=== PATIENT | female | born 1975 | race Caucasian/White ===

== ENCOUNTER 2022-01-31 06:56 | Emergency (ER) | payer MEDICARE, SELFPAY ==
[2022-01-31 06:59] VITALS: BP 110/86; PULSE 95; RESP 20; TEMP 36.4; O2SAT 100; BMI 32.5
--- NOTE | 2022-01-31 07:26 | EKG12_ITS ---
Test Reason : CP Blood Pressure : / mmHG Vent. Rate : 097 BPM Atrial Rate : 097 BPM P-R Int : 116 ms QRS Dur : 080 ms QT Int : 356 ms P-R-T Axes : 057 069 050 degrees QTc Int : 452 ms Normal sinus rhythm Normal ECG Confirmed by KENNETH MACARIO, MARIO ([id number]), videotape editor SILVESTRE CRUZ ([id number]) on 02/01/2022 1:29:17 PM Referred By: BAYLEE Confirmed By:MARIO COOPER MD
--- NOTE | 2022-01-31 07:29 | EX.ED.DYSGE1 ---
HPI History of Present Illness Chief Complaint: General Illness Informant: patient Onset/Context/Timing Onset: Yesterday Context: Gradual Onset Timing: Continuous Quality: malaise/fatigue Location: all over Current Severity: Severe Maximum Severity: Severe Worsened by: nothing Relieved by: nothing Narrative Narrative: Patient presents stating since yesterday she has not felt well. She had chills all night, she states there is white stuff on her tongue that is not thrush because she knows what thrush is, this caused her to drool all night but no dyspnea. Some mild coughing nonproductive. Screven like she had fevers but did not check her temperature. She states her heart and lungs are hurting, the lungs are tight and feel like I am breathing glass and I know my pain is heart pain because it hurts on the left side of my chest although the patient admits that she has no history of any heart problems in the past. She also states that she is paranoid about a lot of things now since someone tampered with her eyedrops and was putting glue in it. When asked how she knew that she states trust me, you know when you are putting glue in your eyes and I was doing it for a year. She states she is no longer using those eyedrops. She has no eye complaints today. She is vaccinated against COVID and has been around no one that she knows of with it, no travel out of the area recently, no swelling in her legs. History of rheumatoid arthritis, no lung or heart issues. [facility] Medical History Pneumonia Rheumatoid arthritis Home Medications albuterol sulfate [Ventolin HFA] 1 - 2 puff INHALATION Q4H PRN PRN #1 inhaler 01/31/22 [Rx Last Taken Unknown] cyclobenzaprine [Flexeril] 30 mg PO QHS 01/31/22 [History Last Taken Unknown] methotrexate mg 01/31/22 [History Last Taken Unknown] Allergy/AdvReac Type Severity Reaction Status Date / Time Sulfa (Sulfonamide Allergy Anaphylaxis Verified 01/31/22 07:02 Antibiotics) Penicillins AdvReac Other Verified 01/31/22 07:02 povidone AdvReac Other Verified 01/31/22 07:02 Surgical History History of tubal ligation Social History Smoking Status: Current every day smoker tobacco type: cigarettes ROS ROS ED Constitutional Constitutional ED: Reports body ache(s), chills, fatigue, fever(s) and malaise Eyes Eyes: Denies change in vision or diplopia ENT ENT ED: Reports as per HPI; Denies rhinorrhea or sore throat Cardiovascular Cardiovascular: Reports as per HPI and chest pain; Denies palpitations Respiratory/Chest Respiratory/Chest: Reports cough; Denies dyspnea Gastrointestinal Gastrointestinal: Denies abdominal pain, diarrhea, nausea or vomiting Genitourinary Genitourinary ED: Denies dysuria or hematuria Musculoskeletal Musculoskeletal: Reports back pain and myalgias; Denies neck pain Integumentary Denies abscess or rash Neurologic Neurologic: Denies headache(s), paresthesias or weakness Psychiatric Psychiatric: Reports as per HPI; Denies anxiety or suicidal thoughts EXAM Physical Exam Const Vital Signs: 01/31/22 06:59 01/31/22 07:12 01/31/22 09:12 Temperature 97.6 F L Temperature Source Oral Pulse Rate 95 Respiratory Rate 20 H Respiratory Pattern Normal Blood Pressure 110/86 H 104/68 Blood Pressure Mean 94 80 Pulse Ox 100 97 Oxygen Delivery Method Room Air Positive well nourished and well developed General Appearance ED: well developed and NAD HEENT Reports moist mucous membranes normocephalic and atraumatic Eyes PERRL and EOMs intact bilaterally Neck full ROM and supple Resp normal respiratory effort and clear to auscultation bilaterally Cardio regular rate, regular rhythm and no murmurs GI non-tender and non-distended Auscultation: normoactive bowel sounds Palpation: soft Back/Spine no CVA tenderness General Back: other FROM Extremity normal to inspection General Extremety ED: Negative for edema, pulses abnormal or tenderness General Extremity: Negative for edema or pulses abnormal Neuro oriented x3, CN's II-XII intact bilaterally and no sensory deficits noted Sensorium / Orientation: awake and alert Motor Exam: strength 5/5 throughout Psych mental status grossly normal, thought process normal and cooperative Psych Narrative: Borderline pressured speech. Logical and not tangential. Attitude: paranoid Thought Content: delusion(s) Skin no rashes or lesions noted and no wounds MDM MDM MDM Narrative Medical decision making narrative: Blood sugar, electrolytes, renal function normal, her EKG and troponin are normal, and her blood counts are normal with no leftward shift to suggest severe bacterial infection. Her rapid COVID and rapid influenza are negative. Eventually she give us a urine sample, it shows no signs of infection and her chest x-ray 1 view on my interpretation is normal, radiology is in agreement. I suspect that she probably has bronchitis given the chest discomfort, I will prescribe her an albuterol inhaler, supportive care is advised I do not think she needs any antibiotics for this at this time, instructions given and follow-up advised. I do not think she needs an emergent psychiatric eval for these delusions, they do not sound new/acute. Lab Data Attestation: I reviewed the patient's lab results. Labs: Laboratory Results - last 24 hr 01/31/22 01/31/22 01/31/22 08:10 08:10 10:53 WBC 9.7 RBC 4.02 L Hgb 11.9 L Hct 36.1 L MCV 89.8 MCH 29.6 MCHC 33.0 RDW Std Deviation 55.3 H RDW Coeff of Reyes 17.0 H Plt Count 231 MPV 9.5 Immature Gran % (Auto) 0.400 Neut % (Auto) 65.6 Lymph % (Auto) 24.6 Citrus % (Auto) 5.6 Eos % (Auto) 3.5 Baso % (Auto) 0.3 Absolute Neuts (auto) 6.3 Absolute Lymphs (auto) 2.38 Nucleated RBC % 0 Sodium 138 Potassium 3.5 Chloride 109 H Carbon Dioxide 26.0 Anion Gap 3 L BUN 9 Creatinine 0.54 L Estim Creat Clear Calc 105.39 Est GFR (MDRD) Af Amer 156 Est GFR (MDRD) Non-Af 129 BUN/Creatinine Ratio 16.8 Glucose 94 Calcium 8.7 Troponin I High Sens < 3 L Urine Color Yellow Urine Clarity Clear Urine pH 6.0 Ur Specific [place] 1.015 Urine Protein Negative Urine Glucose (UA) Normal Urine Ketones Negative Urine Occult Blood 10 H Urine Nitrite Negative Urine Bilirubin Negative Urine Urobilinogen Normal Ur Leukocyte Esterase Negative Urine RBC 0 SEEN Urine WBC 0 SEEN Ur Squamous Epith Cells 0 SEEN Urine Bacteria 0 SEEN Urine Mucus 0 SEEN Radiography Diagnostic Testing: Clinical Impression(s) from Imaging Studies Chest X-Ray 01/31/22 09:05 IMPRESSION: No acute abnormality is seen. Electronically Signed: Nacho Melendez MD at 9:35 EDT , EKG Initial EKG: Attestation: I personally reviewed and interpreted this EKG as follows: Interpretation: Sinus Rhythm and No Acute Injury Pattern Comments: normal EKG Discharge Plan Triage Chief Complaint: General Illness ED Provider: Nolberto Duke Dx/Rx/DC Orders Clinical Impression: Acute viral syndrome, Bronchitis, Chest pain, unspecified Instructions: ED Bronchitis, No Antibiotic (Adult), ED Viral Syndrome (Adult) Prescriptions: New albuterol sulfate [Ventolin HFA] 1 INHALER inhaler 1 - 2 puff inhalation Q4H PRN PRN (Reason: Wheezing) Qty: 1 RF: 0 No Action cyclobenzaprine [Flexeril] 10 mg Tablet 30 mg PO QHS RF: 0 methotrexate 2.5 mg/mL Solution RF: 0 Primary Care Provider: Robby Alicia Referrals: Robby lAicia MD [Primary Care Provider] - 1 Week if not improving Disposition Disposition: Home, Self Care
--- NOTE | 2022-01-31 07:31 | NURSING ---
NO OLD EKGS
[2022-01-31 08:25] LABS: Absolute Lymphocyte Count 2.38 X10^3/uL (0.83-4.51); Absolute Neutrophil Count 6.3 X10^3/uL (2.0-7.7); Basophil# 0.03 X10^3/uL; Basophil% 0.3 % (0-1); Eosinophil# 0.34 X10^3/uL; Eosinophils% 3.5 % (0-5); Hematocrit 36.1 % (37-47); Hemoglobin 11.9 g/dL (12.0-15.0); Lymphocyte # 2.38 X10^3/ul (0.83-4.51); Lymphocyte % 24.6 % (19-41); Mean Corpuscular Hgb 29.6 pg (27.0-32.0); Mean Corpuscular Volume 89.8 fL (81-99); Mean Platelet Vol. 9.5 fl (6.2-12.0); Monocyte# 0.54 X10^3/uL; Monocyte% 5.6 % (0-10); NRBC Flagged by Analyzer 0 % (0-5); Neutrophil # 6.34 X10^3/uL (2.7-7.7); Neutrophil % 65.6 % (47-70); Platelet Count 231 K/mm3 (150-450); RBC Distribution Width SD 55.3 fl (35.1-43.9); Red Blood Count 4.02 M/mm3 (4.2-5.4); White Blood Count 9.7 K/mm3 (4.4-11.0)
[2022-01-31 08:45] LABS: Anion Gap 3 (5-15); BUN 9 mg/dL (7-18); BUN/Creat Ratio 16.8 RATIO (10-20); Calcium,Total 8.7 mg/dL (8.5-10.1); Chloride 109 mmol/L (98-107); Creatinine, Serum 0.54 mg/dL (0.55-1.02); EST Glomerular Filtration Rate 129 mL/min (>60); Est Glom Filt Rate - Afr Amer 156 mL/min (>60); Estimated Creatinine Clearance 105.39 ml/min; Glucose 94 mg/dL (74-106); Potassium 3.5 mmol/L (3.5-5.1); Sodium Level 138 mmol/L (136-145); Troponin-I HS < 3 pg/mL (3.0-54.0)
[2022-01-31] MEDS: Ketorolac 30 MG/ML Syringe IV (08:56)
--- NOTE | 2022-01-31 09:05 | RAD_ITS ---
STUDY: X-RAY CHEST REASON FOR EXAM: Female, 46 years old. Cough TECHNIQUE: Single AP portable view of the chest. COMPARISON: None. FINDINGS: EKG electrodes are seen. The lungs are clear and expanded. There is no demonstrated pleural abnormality. Normal size heart. Normal mediastinum and dexter. Normal visualized pulmonary arteries. Normal visualized aortic arch and descending thoracic aorta. Normal visualized thoracic spine. Prior fusion of the lower cervical spine. There is no demonstrated abnormality of the visualized soft tissue structures of the upper abdomen. RAD/Chest 1 View (Portable) IMPRESSION: No acute abnormality is seen. Electronically Signed: Nacho Melendez MD at 9:35 EDT ,
[2022-01-31 09:12] VITALS: BP 104/68; O2SAT 97
[2022-01-31 11:00] LABS: Bacteria 0 SEEN /hpf (None Seen); Mucous, Urine 0 SEEN /hpf (<or=2+); Red Blood Cells-Urine 0 SEEN /hpf (0-5); Squamous Epithelial Cells - UA 0 SEEN /hpf (5-10); White Blood Cells 0 SEEN /hpf (0-5)
[2022-01-31 11:05] LABS: Color, Urine Yellow (Yellow); Glucose, Dipstick Normal (Normal); Ketone-Dipstick Negative (Negative); Leukocyte Esterase-Dipstick Negative /ul (Negative); Nitrite-Dipstick Negative (Negative); Occult Blood-Urine 10 /ul (Negative); Protein-Dipstick Negative (Negative); Specific Gravity, Urine 1.015 (1.002-1.030); Urine Bilirubin Dipstick Negative (Negative); Urine Clarity Clear (Clear); Urine Urobilinogen Normal (Normal)
[2022-01-31 11:38] VITALS: BP 121/74; PULSE 81; RESP 16; O2SAT 98
== END 2022-01-31 11:45 | disposition home or self-care (01) ==
PROVIDERS: Emergency Provider Emergency Medicine; Visit Provider Emergency Medicine
DX: J40 Bronchitis, not specified as acute or chronic (principal); F22 Delusional disorders; B34.9 Viral infection, unspecified; R07.9 Chest pain, unspecified; F17.210 Nicotine dependence, cigarettes, uncomplicated; Z79.899 Other long term (current) drug therapy
CPT/HCPCS: 71045; 80048; 81001; 84484; 85025; 87428; 93005; 96361; 96374; 99283; J7040; A4216